=== PATIENT | female | born 1945 | race Caucasian/White ===

== ENCOUNTER → 2020-06-07 | Outpatient (CLI) | payer OTHER ==
[~2020-06-07] MED LIST: ASTEPRO NASAL; AZOR 5-40 MG T1 EACH PO; CYCLOBENZAPRINE10 MG PO; EVOXAC30 MG PO; FLONASE 0.05%50 MCG NASAL; HYDROXYCHLOROQ200 M1 PO; LANSOPRAZOLE30 MG PO; RESTASIS1 EACH OPHTHALMIC
== END ==
LOC: SJCVCIMAG 10:51
PROVIDERS: ATTEND Internal Medicine
DX: I08.8 Other rheumatic multiple valve diseases (principal); R94.31 Abnormal electrocardiogram [ECG] [EKG]; R00.0 Tachycardia, unspecified; I11.9 Hypertensive heart disease without heart failure; E78.5 Hyperlipidemia, unspecified; Z79.899 Other long term (current) drug therapy